=== PATIENT | female | born 1940 | race Caucasian/White ===

== ENCOUNTER 2019-10-23 10:22 | Inpatient (IN) | payer MEDICARE, OTHER ==
[~2019-10-23] VITALS: Ht 165.1 cm; Wt 77.6 kg
[~2019-10-23 10:22] MED LIST: ASPIR 8181 MG PO; ATENOLOL25 MG PO; CENTRUM COMPLE1 EACH PO; ESIDRIX25 MG PO; POTASSIUM CITRA5 MEQ PO; POTASSIUM INJ; SYNTHROID50 MCG PO
--- NOTE | 2019-10-23 11:51 | NUR ---
Efe HARDY IN TO SEE THE PT.
[2019-10-23] MEDS ORDERED: SODIUM CHLORIDE 0.9% 500ML 500 ML IV STA (11:56)
[2019-10-23] MEDS ORDERED: MECLIZINE HCL 12.5 MG TAB PO ONE (12:15)
[2019-10-23 12:20] LABS: BASOPHILS # (AUTO) 0.1 (0.0-0.1); BASOPHILS % 0.4 % (0.0-1.0); EOSINOPHILS % 0.2 % (0.0-6.0); HEMATOCRIT 48.4 % (34.2-44.1); HEMOGLOBIN 16.1 g/dL (12.0-16.0); LYMPHOCYTES # (AUTO) 1.3 (1.0-3.2); LYMPHOCYTES % 10.7 % (18.0-39.1); MEAN CORPUSCULAR HEMOGLOBIN 30.7 pg (28-32); MEAN CORPUSCULAR HGB CONC 33.3 g/dL (31-35); MEAN CORPUSCULAR VOLUME 92.4 fL (81-99); MONOCYTES # (AUTO) 0.9 (0.2-0.8); MONOCYTES % 7.1 % (4.4-11.3); NEUTROPHILS # (AUTO) 9.9 (2.1-6.9); NEUTROPHILS % 81.3 % (38.7-80.0); PLATELET COUNT 234 x10e3/uL (140-360); RED BLOOD COUNT 5.24 x10e6/uL (3.6-5.1); RED CELL DISTRIBUTION WIDTH 13.9 % (11.7-14.4)
[2019-10-23 12:32] LABS: INR 1.04; PARTIAL THROMBOPLASTIN TIME 37.7 seconds (23.8-35.5); PROTHROMBIN TIME 14.1 seconds (11.9-14.5)
--- NOTE | 2019-10-23 13:45 | Diagnostic Imaging Report ---
Examination: CT head without contrast Clinical Indication: Loss of balance.. Technique: Transaxial noncontrast images from the skull base through the vertex were obtained. Sagittal and coronal reformatted images were done. Dose modulation, iterative reconstruction, and/or weight based adjustment of the mA/kV was utilized to reduce the radiation dose to as low as reasonably achievable. Comparison: None. Findings: Scalp: No abnormalities. Bones: No fractures. No blastic or lytic lesions. Brain sulci: Mild generalized volume loss for patient's age. Ventricles: Ex vacuo dilatation. No hydrocephalus. Extra-axial space: No abnormalities. Parenchyma: There are patchy areas of low-attenuation within subcortical and periventricular white matter, nonspecific, but could represent microvascular ischemic disease. No masses, hemorrhage, or acute cortical based vascular insults. There is cortical based encephalomalacia involving the left temporal lobe and deep to prior left pterional craniotomy and temporal craniectomy There are dystrophic calcifications in the midline and left aspect of the nadine and left middle cerebellar peduncle which could represent a vascular malformation. Suprasellar region: No abnormalities. Craniocervical junction: The foramen magnum is patent. No Chiari one malformation. Incidental findings: Atherosclerotic calcification of the cavernous and supraclinoid internal carotid arteries. Impression: 1. No acute intracranial abnormality. 2. Mild chronic microvascular ischemic change and generalized volume loss. 3. 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 Signed by: Dr. Nadia Frey M.D. on 10/23/2019 1:42 PM
--- NOTE | 2019-10-23 13:47 | Diagnostic Imaging Report ---
Chest, portable AP view History: Loss of balance Comparison: None IMPRESSION: The heart is within normal limits of size. The aorta has a tortuous appearance. There is no focal consolidation, sizable pleural effusion, or pneumothorax. No acute osseous abnormalities. Signed by: Dakota Braga MD on 10/23/2019 1:44 PM
[2019-10-23 14:21] LABS: BILIRUBIN,URINE NEGATIVE (NEGATIVE); COLOR,URINE YELLOW (YELLOW); KETONES,URINE 1+ (NEGATIVE); LEUKOCYTE ESTERASE ,URINE NEGATIVE (NEGATIVE); NITRITE,URINE NEGATIVE (NEGATIVE); PROTEIN,URINE DIPSTICK TRACE (NEGATIVE); URINE UROBILINOGEN 0.2 mg/dL (0.2 - 1)
[2019-10-23 14:35] LABS: CLARITY,URINE SL CLOUDY (CLEAR)
[2019-10-23 14:37] LABS: EPITHELIAL CELLS,URINE RARE /LPF; RBC,URINE 0-5 /HPF (0-5)
[2019-10-23] MEDS ORDERED: SODIUM CHLORIDE 0.9% 1000ML 1,000 ML IV ONE (15:15)
--- OUTSIDE RECORDS SUMMARY | 2019-10-23 15:35 | XMS REPORT ---
Author [facility] Address Unknown Phone Unavailable Care Team Providers Care Supervisor [employer] Name Role Phone Padma RHODES Unavailable Unavailable Problems This patient has no known problems. Allergies, Adverse Reactions, Alerts This patient has no known allergies or adverse reactions. Medications This patient has no known medications. Results Test Description Test Time Test Comments Text Results Atomic Results Result Comments CHEST SINGLE (PORTABLE) 2019-10-23 13:44:00 [place] [address] Patient Name: ALBA ROBLEDO MR #: [id number] : 1940 Age/Sex: 79/F Req #: [id number] Adm Physician: Ordered by: HAYLEY WINSLOW DAT[employer] SUPPORT Report #: [id number] Location: ER Room/Bed: Procedure: [id number] DX/CHEST SINGLE (PORTABLE) Exam Date: 10/23/19 Exam Time: 1239 REPORT STATUS: Signed Chest, portable AP view History: Loss of balance Comparison: None IMPRESSION: The heart is within normal limits of size. The aorta has a tortuous appearance. There is no focal consolidation, sizable pleural effusion, or pneumothorax. No acute osseous abnormalities. Signed by: Dakota Ta MD on 10/23/2019 1:44 PM Dictated By: DAKOTA TA MD 1344 Transcribed By: NHI on 10/23/194 COPY TO: HAYLEY WINSLOW NP CT BRAIN WO 2019-10-23 13:39:00 [place] [address] Patient Name: ALBA ROBLEDO MR #: [id number] : 1940 Age/Sex: 79/F Req #: [id number] Adm Physician: Ordered by: HAYLEY WINSLOW NP Report #: [id number] Location: ER Room/Bed: Procedure: [id number] CT/CT BRAIN WO Exam Date: Exam Time: REPORT STATUS: Signed Examination: CT head without contrast Clinical Indication: Loss of balance.. Technique: Transaxial noncontrast images from the skull base through the vertex were obtained. Sagittal and coronal reformatted images were done. Dose modulation, iterative reconstruction, and/or weight based adjustment of the mA/kV was utilized to reduce the radiation dose to as low as reasonably achievable. Comparison: None. Findings: Scalp: No abnormalities. Bones: No fractures. No blastic or lytic lesions. Brain sulci: Mild generalized volume loss for patient's age. Ventricles: Ex vacuo dilatation. No hydrocephalus. Extra-axial space: No abnormalities. Parenchyma: There are patchy areas of low-attenuation within subcortical and periventricular white matter, nonspecific, but could represent microvascular ischemic disease. No masses, hemorrhage, or acute cortical based vascular insults. There is cortical based encephalomalacia involving the left temporal lobe and deep to prior left pterional craniotomy and temporal craniectomy T here are dystrophic calcifications in the midline and left aspect of the nadine and left middle cerebellar peduncle which could represent a vascular malformation. Suprasellar region: No abnormalities. Craniocervical junction: The foramen magnum is patent. No Chiari one malformation. Incidental findings: Atherosclerotic calcification of the cavernous and supraclinoid internal carotid arteries. Impression: 1. No acute intracranial abnormality. 2. Mild chronic microvascular ischemic change and generalized volume loss. 3. 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 Signed by: Dr. Nadia Frey M.D. on 10/23/2019 1:42 PM Dictated By: NADIA HOYT MD 1342 Transcribed By: NHI on 10/23/19 1342 COPY TO: HAYLEY WINSLOW NP
[2019-10-23 17:55] LABS: ALANINE AMINOTRANSFERASE 21 IU/L (0-55); ALBUMIN 3.7 g/dL (3.5-5.0); ALBUMIN/GLOBULIN RATIO 1.1 (0.8-2.0); ALKALINE PHOSPHATASE 74 IU/L (40-150); ANION GAP 15.6 mmol/L (8-16); BLOOD UREA NITROGEN 11 mg/dL (7-26); BUN/CREATININE RATIO 14 (6-25); CALCIUM 8.9 mg/dL (8.4-10.2); CARBON DIOXIDE 23 mmol/L (22-29); CHLORIDE 101 mmol/L (98-107); CREATINE KINASE 194 IU/L (29-168); CREATININE, SERUM 0.76 mg/dL (0.57-1.11); EST GLOMERULAR FILTRATION RATE > 60 ML/MIN (60-); GLUCOSE 92 mg/dL (74-118); POTASSIUM 3.6 mmol/L (3.5-5.1); SODIUM 136 mmol/L (136-145)
[2019-10-23] MEDS ORDERED: HYDRALAZINE HCL 20 MG/ML VIAL IV ONE ×2 (18:06→18:14)
--- NOTE | 2019-10-23 18:39 | Diagnostic Imaging Report ---
Exam: Brain MRI, neck MRA and intracranial MRA without IV contrast History: Ataxia Comparison studies: Head CT 10/23/2019 Technique: Brain: Pre-contrast: Sagittal T2; axial T1-IR, MPGR, DWI, T2 FLAIR. Post-contrast: axial and coronal T1. Cervical MRA: Axial 2-D [id number] with 3-D MIP reformats. Intracranial MRA: Axial 3-D [id number] with coronal, sagittal and 3-D MIP reformats. Intravenous contrast: None Findings: Brain: Scalp and bones: Surgical changes of prior left frontotemporal craniotomy. Plate and screw construct also present along the adjacent left zygomatic arch as seen on the prior CT. Brain sulci: Mildly prominent. Ventricles: Lateral and third ventricles are mildly prominent and there is ex vacuo dilatation of the left temporal horn due to chronic left temporal insult. Fourth ventricle is moderately prominent. Parenchyma: No mass, acute hemorrhage or acute ischemia. Chronic cortical/subcortical insult with encephalomalacia and gliosis along within the anterior and lateral left temporal lobe as well as smaller insult along the left lateral orbitofrontal gyrus beneath beneath the left frontotemporal craniotomy. Likely correlated with surgical history. A few scattered and mildly confluent T2 FLAIR hyperintense foci in the supratentorial white matter are nonspecific but are most compatible with chronic microvascular ischemic changes. Dystrophic calcifications in the nadine are better visualized on the preceding head CT. Vascular lesion/of the cavernous malformation is a consideration. Minimal gliotic changes are present in the left ventral nadine. There is nonspecific moderate volume loss within the cerebellum which is nonspecific. Findings can be seen as sequela chronic EtOH use, chronic use of antiseizure medication (i.e. Dilantin/phenytoin) in the appropriate clinical setting among other etiologies. Suprasellar region: No abnormalities. Craniocervical junction: No abnormalities. The foramen magnum is patent. No Chiari malformations. Vessels: Normal flow-voids in the arteries and sinuses. Incidental findings: Lens or placement for previous cataract surgery. Neck MRA: Exam is limited by artifacts related to patient motion. If present, stenosis is calculated utilizing the NASCET method which calculates the degree of stenosis with reference to the normal lumen of the carotid artery distal to the stenosis. Common carotid arteries: Patent, no flow limiting stenosis. Carotid bulbs: Patent, no (0%) stenosis by NASCET criteria. Internal carotid arteries: Patent, no flow limiting stenosis. Vertebral arteries: Evaluation the origins are limited by motion artifacts otherwise patent, no flow limiting stenosis. Intracranial MRA: Anterior circulation: Internal carotid arteries: Calcified atherosclerosis in the cavernous segments bilaterally. Patent, no flow limiting stenosis on the right. Patent left ICA with moderate to severe stenosis in the left cavernous segment with mild poststenotic dilatation. Anterior cerebral arteries: No proximal branch occlusion or stenosis. Middle cerebral arteries: Patent, no proximal branch occlusion or stenosis. Posterior circulation: Vertebral arteries: Patent, no flow signal abnormalities. Basilar artery: Patent, no flow signal abnormalities. 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 Posterior cerebral arteries: Patent, no proximal branch occlusion or stenosis. Anatomical variants: Anterior cerebral arteries: Likely hypoplastic left A1 segment Acom: Visualized. Pcoms: Not visualized bilaterally.. Vertebral arteries: Codominant. Basilar artery: Possible fenestration at the vertebrobasilar junction. IMPRESSION: Brain: 1. No acute intracranial abnormalities. 2. 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 3. Mild to moderate supratentorial chronic microvascular ischemic changes. 4. Generalized brain volume loss with nonspecific moderate cerebellar atrophy, as described. 5. Nonspecific pontine calcifications, better visualized on the prior 10/23/2019 CT. Neck MRA: 1. Patent carotid arteries without flow limiting stenosis. No (0%) stenosis at the carotid bulbs by NASCET criteria. 2. Cannot adequately evaluate the vertebral artery origins due to artifacts. Both vertebral arteries otherwise patent without flow limiting stenosis. Intracranial MRA: 1. Moderate to severe stenosis in the left cavernous ICA segment. 2. No major branch occlusion or other major branch stenosis. 3. Anatomical variants as described. Signed by: Dr. Dillon Duff M.D. on 10/23/2019 6:35 PM
[2019-10-23 20:49] VITALS: BP 144/77
--- NOTE | 2019-10-23 20:50 | NUR ---
Received patient from ER via stretcher. Patient is alert, oriented and verbal. Transferred to bed. Oriented to room. Patient wants to go to the bathroom but complain of weakness to both lower extremities. Walker provided but patient refused. Bedpan offered, used by patient. [place] alarm on. Call light within reached.
[2019-10-23 22:06] VITALS: BP 144/77
[2019-10-23 22:13] VITALS: BP 144/77
[2019-10-24] VITALS (8 sets, daily range): BP systolic 101–169; BP diastolic 62–78
[2019-10-24 01:02] LABS: CREATINE KINASE 225 IU/L (29-168)
[2019-10-24] MEDS: LEVOTHYROXINE SODIUM 50 MCG TAB PO SCH (05:14)
[2019-10-24 06:57] LABS: BASOPHILS # (AUTO) 0.1 (0.0-0.1); BASOPHILS % 0.6 % (0.0-1.0); EOSINOPHILS # (AUTO) 0.3 (0.0-0.4); EOSINOPHILS % 2.6 % (0.0-6.0); HEMATOCRIT 45.5 % (34.2-44.1); LYMPHOCYTES % 20.3 % (18.0-39.1); MEAN CORPUSCULAR HEMOGLOBIN 30.6 pg (28-32); MEAN CORPUSCULAR VOLUME 92.9 fL (81-99); MONOCYTES # (AUTO) 0.8 (0.2-0.8); MONOCYTES % 8.4 % (4.4-11.3); NEUTROPHILS # (AUTO) 6.5 (2.1-6.9); NEUTROPHILS % 67.8 % (38.7-80.0); PLATELET COUNT 203 x10e3/uL (140-360); RED CELL DISTRIBUTION WIDTH 13.8 % (11.7-14.4)
[2019-10-24 07:11] LABS: CREATINE KINASE MB < 1.00 ng/mL (0-4.3)
[2019-10-24 07:46] LABS: ALANINE AMINOTRANSFERASE 16 IU/L (0-55); ALBUMIN 3.5 g/dL (3.5-5.0); ALBUMIN/GLOBULIN RATIO 1.2 (0.8-2.0); ALKALINE PHOSPHATASE 69 IU/L (40-150); ANION GAP 14.2 mmol/L (8-16); BLOOD UREA NITROGEN 9 mg/dL (7-26); BUN/CREATININE RATIO 13 (6-25); CALCIUM 8.4 mg/dL (8.4-10.2); CARBON DIOXIDE 22 mmol/L (22-29); CHLORIDE 102 mmol/L (98-107); CREATININE, SERUM 0.72 mg/dL (0.57-1.11); EST GLOMERULAR FILTRATION RATE > 60 ML/MIN (60-); GLUCOSE 83 mg/dL (74-118); POTASSIUM 3.2 mmol/L (3.5-5.1); SODIUM 135 mmol/L (136-145)
[2019-10-24 08:06] LABS: CREATINE KINASE 151 IU/L (29-168)
[2019-10-24] MEDS: ATENOLOL 50 MG TAB PO SCH (08:40)
[2019-10-24] MEDS: POTASSIUM CITRATE 10 MEQ TAB PO SCH (08:40)
[2019-10-24] MEDS: MULTIVITAMINS/MINERALS TAB PO SCH (08:41)
[2019-10-24] MEDS: ASPIRIN 81 MG CHEW TAB PO SCH (08:41)
[2019-10-24] MEDS ORDERED: NON-FORMULARY MEDICATION (Multivitamin/Iron/Folic Acid (Centrum Complete Multivit Tab) 1 T PO SCH (09:00)
[2019-10-24] MEDS ORDERED: POTASSIUM CITRATE 1080 MG PO SCH (09:00)
[2019-10-24] MEDS ORDERED: NON-FORMULARY MEDICATION (Atenolol 25 MG) PO SCH (09:00)
[2019-10-24] MEDS: MECLIZINE HCL 12.5 MG TAB PO SCH ×3 (10:00→22:00)
[2019-10-24] MEDS ORDERED: POTASSIUM CHLORIDE 10MEQ EA PO ONE ×2 (10:40→15:30)
[2019-10-24] MEDS ORDERED: VALSARTAN 160 MG TAB PO ONE (10:45)
--- NOTE | 2019-10-24 16:53 | History and Physical ---
CHIEF COMPLAINT: Difficulty walking, dizziness. HISTORY OF PRESENT ILLNESS: The patient is an 79-year-old female with previous craniotomy back in 2007. The patient's history is not reliable, but she did have surgery because of vision problems in the left eye and subsequently after the craniotomy, the patient had some double vision of the left eye and she is wearing a special spectacle for the eye vision. Apparently, she was doing well, but for the past month or so, she was having increasing dizziness, but not quite severe where she was able to manage. On the day of her presentation, the patient was having difficulty get out of bed because she was unable to get up and walk due to severe dizziness and ataxia. She came to the hospital for evaluation. Multiple tests were done including MRI, MRA of the brain, and CT of the brain. The patient has patent carotid arteries with outflow limitation. On the intracranial MRA, the patient had [id number] stenosis in the left cavernous ICA segment. No major brain occlusion, however. The patient basically has no mass or acute hemorrhage or acute ischemic changes of the MRI. The patient is otherwise stable, although she is still having some dizziness when she gets out of bed, especially sitting up and standing up. The patient has no chest pain or shortness of breath. No abdominal pain. PAST MEDICAL HISTORY: Previous craniotomy back in 2007, off and on dizziness, hypertension, hypothyroidism, and osteoarthritis. SOCIAL HISTORY: The patient lives at home. She does not smoke or use alcohol. No regular drug. ALLERGIES: NO KNOWN ALLERGIES. HOME MEDICATIONS: Baby aspirin, atenolol, HCTZ, levothyroxine, multivitamin, and potassium. PHYSICAL EXAMINATION: VITAL SIGNS: Temperature is 99.5, blood pressure is 169/78, pulse rate 73, and respirations 18. GENERAL: The patient is not in acute distress. She is awake. HEENT: Normocephalic grossly. No laceration. NECK: Supple. PULMONARY: Clear. CARDIOVASCULAR: Regular rate and rhythm. ABDOMEN: Soft and unremarkable. EXTREMITIES: No cyanosis or edema. NEUROLOGIC: The patient had dizziness and ataxia, but otherwise no weakness noticed in upper or lower extremities. No other focal deficit. LABORATORY DATA: Sodium is 135, potassium 3.2, chloride 102, bicarb is 22, BUN is 9, creatinine 0.7, and glucose 83. WBC is 9.6, hemoglobin is 15, hematocrit 45, and platelets is 203. IMPRESSION: Ataxia with dizziness could be secondary to benign positional vertigo. The imaging tests, MRI, MRA of the brain, and CT of the brain, there was no acute finding. There is no mass effect. The previous craniotomy, which is stable. PLAN: Trial of nicotine. PT/OT for the patient. I will consult Dr. French, neurologist and I did speak with her. Dr. French will see the patient to see if she can amend the treatment to make the patient a few little better. But otherwise, the imaging did not review any acute intervention needed. MD GENESIS Trevizo/HENRY /[id number]
--- NOTE | 2019-10-24 19:32 | NUR ---
CHECKED PATIENT IN HER ROOM, SHE IS AWAKE ALERT ORIENTED, NO DISTRESS NOTED, DENIED ANY DISCOMFORT. SHE STATED DR ARCOS CAME TO HER TODAY. SHE ALSO STATED SHAT SHE STILL NOT STABLE WALKING TO BATHROOM BY HERSELF. CALLED LIGHT WITHIN REACH AND ADVISED PATIENT TO CALL FOR HELP.
--- NOTE | 2019-10-24 20:20 | NUR ---
Received patient from another nurse. patient is stable, safety and fall precautions mantained at this time and patient encouraged to call for help at all times, bed alarm in place.
--- NOTE | 2019-10-24 21:59 | Consultation ---
DATE OF CONSULTATION: 10/24/2019 Neurology Consult Note HISTORY OF PRESENT ILLNESS: Ms. 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 At approximately 0330 on the day of admission, the patient awoke from sleep needing to use the restroom. As she turned towards her left side to rise from the bed, the patient experienced a sudden onset of severe dizziness, which is further described as a vertiginous sensation. Ms. Bowles does not report blurred vision or other visual disturbance, nausea, vomiting, or headache associated with the vertiginous sensation. To her knowledge, there were no other neurological symptoms accompanying the vertiginous sensation. Over the next several minutes, the patient repeatedly attempted to rise from her bed, so she could use the restroom. However, each time the patient tried to stand from her bed, she experienced severe vertigo and fell back towards the bed. Ms. Bowles reports the vertigo occurred only in association with movement. When she laid still, she did not experience a vertiginous sensation. Ms. Bowles eventually did move from her bed to the restroom and back again. However, the patient reports having to crawl or scoot along the floor in order to move from her bed to the restroom and back again. After using the restroom, the patient returned to sleep for a few hours. When she awoke, the vertiginous sensation persisted. Ms. Bowles subsequently called her sister, told her of her symptoms, and requested her sister to take her to an emergency center for evaluation. When Ms. Bowles's sister and [id number] arrived at her home to take her to the emergency center, the patient had to crawl to the front door in order to open it. It took both the patient's sister and her zotezdt-hn-jzs to help her stand, ambulate to their truck, and sit herself in the truck. Once this was accomplished, Ms. Bowles was brought to the emergency center at [facility] for further evaluation of her symptoms. Upon arrival in the emergency center, the patient was afebrile with a blood pressure of 150/81 mmHg and a pulse of 65 beats per minute. Her neurological examination was significant for generalized weakness and a positive Romberg with noted truncal ataxia. While in the emergency center, the patient underwent a CT of the brain without contrast. This study did not reveal evidence of recent large territorial ischemia or hemorrhage. A prior left temporal craniotomy and temporal craniectomy with encephalomalacia of the left frontotemporal region were appreciated on this study. Ms. Bowles was subsequently admitted to [facility] under observation status for further evaluation and treatment of her symptoms. Ms. Bowles does not report experiencing similar symptoms previously. She does not report pain or pressure behind either ear, drainage from either ear, hearing loss or tinnitus affecting either ear. She does not report recent fevers, chills, rhinorrhea, nasal congestion, scratchy throat, cough, or other symptoms suspicious for an upper respiratory illness. As stated above, the patient was reportedly diagnosed with a brain mass (type unknown) approximately 8-10 years ago. She underwent resection of a "majority" of the mass followed by 30 cycles of radiation. Following these treatments, Ms. Bowles underwent annual surveillance at [facility]. Approximately two years ago, the patient was advised she may follow up for surveillance once every two years. As far she can recall, Ms. Bowles has not been seen by her physicians at [facility] in approximately 2 years. REVIEW OF SYSTEMS: Palpitations, impairment of balance and gait, dizziness which is further described as a vertiginous sensation. Otherwise, a 12-point review of systems is negative. PAST MEDICAL HISTORY: Hypertension, thyroid disease, prior cerebral mass as detailed in the history of present illness. PAST SURGICAL HISTORY: Neurosurgical procedure for brain mass, repair of left wrist fracture, multiple ankle surgeries, tonsillectomy, cholecystectomy, bilateral cataract removal, and left eye surgery for diplopia. PAST HOSPITALIZATIONS: Surgeries/procedures as listed. FAMILY MEDICAL HISTORY: Ms. Bowles's father is . His medical history was significant for coronary artery disease with multiple myocardial infarctions and two strokes. The patient's mother is from colon cancer. Ms. Bowles's mother had a history of diabetes mellitus as well. The patient has two siblings, one brother and one sister, both of whom are alive. Ms. Bowles's brother's medical history is unknown. Her sister, who is at the bedside, reports she is healthy. The patient has no children. SOCIAL HISTORY: Ms. Bowles is single. 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 She does not report current or prior tobacco, alcohol, or recreational drug use. HOME MEDICATIONS: Aspirin 81 mg by mouth daily, atenolol 25 mg by mouth daily, hydrochlorothiazide 25 mg by mouth daily, levothyroxine 50 mcg by mouth every morning, multivitamin one tablet by mouth daily, and potassium citrate one tablet by mouth daily. HOSPITAL MEDICATIONS: Aspirin, atenolol, levothyroxine, meclizine, multivitamin, potassium citrate, and valsartan. ALLERGIES: NO KNOWN DRUG ALLERGIES. NO KNOWN FOOD ALLERGIES. NO KNOWN ALLERGIES TO LATEX. NO KNOWN ALLERGIES TO IODINE OR OTHER CONTRAST MATERIALS. PHYSICAL EXAMINATION: VITAL SIGNS: Height 65 inches, weight 172 pounds, BMI 28.6 kg/m2, blood pressure 164/67 mmHg, pulse 61 beats per minute, respiratory rate 18 breaths per minute, and oxygen saturation 95% on room air. GENERAL: The patient is awake and alert, does not appear distressed. Overweight. HEENT: Normocephalic, atraumatic. Pupils are surgical. Moist mucous membranes. NECK: Supple. No appreciable thyromegaly. No appreciable carotid bruits. CARDIOVASCULAR: S1, S2, regular rate and rhythm. No murmurs, rubs, or gallops. RESPIRATORY: Clear to auscultation bilaterally. No wheezes, rhonchi, or rales. EXTREMITIES: The skin is warm and dry. No clubbing, cyanosis, or edema. The posterior tibial and dorsalis pedis pulses are 2+ and symmetric. SKIN: No rashes or lesions. NEUROLOGIC: Memory/Attention: The patient is awake and alert, oriented to person, place, time, and situation. Cranial Nerves: Cranial nerve I - not tested. Cranial nerve II, III, IV, and - pupils are surgical. Extraocular movements intact. No nystagmus. Cranial nerve V - sensation to light touch and pinprick is intact in the bilateral V1 through V3 distributions. Strength in the temporalis and masseter muscles is within normal limits. Cranial nerve VII - the face is symmetric as are all facial movements. Strength is within normal limits. Cranial nerve VIII - hearing is diminished to finger rub bilaterally. Cranial nerve IX, X - the soft palate elevates equally and symmetrically. Cranial nerve XI - normal strength of the bilateral sternocleidomastoid and trapezius muscles. Cranial nerve XII - the tongue protrudes midline and moves symmetrically from vqxs-je-qrel. Strength: Bulk is normal. Strength is 5/5 in the bilateral deltoids, biceps, triceps, wrist flexors and extensors, finger flexors and extensors, intrinsic hand muscles, hip flexors, knee flexors and extensors, ankle dorsiflexion and plantar flexion, and intrinsic foot muscles. Tone is normal. DTRs: Deep tendon reflexes are 2++ and symmetric at the triceps, biceps, brachioradialis, patellas, and Achilles. Plantar responses are flexor bilaterally. Sensation: Sensation is intact to light touch and pinprick in both arms and both legs. Cerebellar: Mqiuzd-igub-hkvyie and heel-alexis movements are intact without dysmetria or other impairment. Gait: Deferred. Speech: Spontaneous speech is normal without appreciable dysarthria or aphasia. Repetition is intact. Involuntary movements: None. Pronator Drift: None. LABORATORY DATA: The most recent comprehensive metabolic panel is significant for sodium of 135, potassium of 3.2, and total bilirubin of 1.5. Other than mildly elevated creatine kinase, cardiac enzymes are negative x2. B-natriuretic peptide 121.7. TSH 0.083. The CBC with differential and platelets is unremarkable. A coagulation profile is within normal limits. Urinalysis collected on October 23, 2019, reveals slightly cloudy urine with trace protein and 1+ ketones. A urine culture collected on October 23, 2019, reveals no growth at 18 to 24 hours. DIAGNOSTIC STUDIES: Chest x-ray on 10/23/2019: The heart is within normal limits of size. The aorta has a tortuous appearance. There is no focal consolidation, sizable pleural effusion, or pneumothorax. No acute osseous abnormalities. CT of the brain without contrast on 10/23/2019: On my review, there is no evidence of recent large territorial ischemia, hemorrhage, mass, or mass effect. There is an encephalomalacia in the left frontotemporal region with findings compatible with prior left temporal craniectomy. Cerebral volumes are appropriate for age. There is ex vacuo dilatation of the ventricle. There are findings compatible with etpu-uy-nyzxzebt chronic small-vessel ischemic disease. MRI of the brain without contrast on 10/23/2019: Unchanged from the CT of the brain without contrast of the same date. 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 Otherwise, the intracranial and extracranial vasculature are without hemodynamically significant stenosis. ASSESSMENT AND PLAN: Ms. Bowles is an 79-year-old right-hand dominant woman with past medical history as detailed, admitted to [facility] on October 23, 2019, under observation status with vertigo and poor balance with impairment of gait resulting in multiple falls. The patient has undergone a thorough neurological examination with findings detailed above. Her laboratory data and other diagnostic studies have been reviewed and are documented above. 1. In my opinion, the etiology of the patient's vertigo with poor balance, impairment of gait, and multiple recent falls is due to benign paroxysmal positional vertigo, probably affecting the left ear. According to the patient, her symptoms are gradually improving. Continue meclizine 12.5 mg by mouth every 8 hours. Follow up the recommendations of the physical therapy consultation. If Ms. Bowles's symptoms have not resolved within 2-3 days, consider a referral to Physical Therapy for vestibular exercises. 2. 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 It is not symptomatic, so no intervention, i.e., stenting is necessary. However, the patient's vascular risk factors should be aggressively treated to prevent progression of the stenosis. To this end, a lipid panel and hemoglobin A1c will be added to the blood work ordered for the morning of October 25, 2019. Recommendations are as follows: a. Continue treatment with aspirin 81 mg by mouth daily. b. The patient's goal blood pressure is less than 130/70 mmHg. c. The patient's goal total cholesterol is less than 200 with an LDL of less than 100. Follow up the results of the lipid panel and prescribe statin medication as appropriate. d. The patient's goal hemoglobin A1c is less than 7.0. Follow up the results of the hemoglobin A1c and treat as appropriate. 3. As detailed in the history of present illness, Ms. 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 Defer continued monitoring and treatment to [facility]. 4. Defer treatment of the remaining medical comorbidities to the primary and other services following the patient. 5. Anticipated discharge home within 1-2 days. Thank you for this consultation. I will continue to monitor the patient while she remains in the hospital. TIME SPENT: 70 minutes. Lata French MD CP/HENRY /[id number] MTDD
[2019-10-25] VITALS (8 sets, daily range): BP systolic 153–183; BP diastolic 66–78
[2019-10-25] MEDS: MECLIZINE HCL 12.5 MG TAB PO SCH ×3 (05:56→21:00)
[2019-10-25] MEDS: LEVOTHYROXINE SODIUM 50 MCG TAB PO SCH (05:57)
[2019-10-25] MEDS ORDERED: VALSARTAN 160 MG TAB PO SCH (06:00)
--- NOTE | 2019-10-25 06:19 | NUR ---
Dr. Nj office paged for GI consult Addendum: 10/25/19 at 0621 by Asim Landeros RN WRONG GINA
[2019-10-25 07:02] LABS: ANION GAP 13.5 mmol/L (8-16); BLOOD UREA NITROGEN 9 mg/dL (7-26); BUN/CREATININE RATIO 12 (6-25); CALCIUM 8.3 mg/dL (8.4-10.2); CARBON DIOXIDE 24 mmol/L (22-29); CHLORIDE 102 mmol/L (98-107); CREATININE, SERUM 0.76 mg/dL (0.57-1.11); EST GLOMERULAR FILTRATION RATE > 60 ML/MIN (60-); GLUCOSE 87 mg/dL (74-118); POTASSIUM 3.5 mmol/L (3.5-5.1); SODIUM 136 mmol/L (136-145)
[2019-10-25] MEDS: ASPIRIN 81 MG CHEW TAB PO SCH (08:54)
[2019-10-25] MEDS: MULTIVITAMINS/MINERALS TAB PO SCH (08:54)
[2019-10-25] MEDS: POTASSIUM CITRATE 10 MEQ TAB PO SCH (08:55)
[2019-10-25] MEDS: ATENOLOL 50 MG TAB PO SCH (08:55)
[2019-10-25] MEDS ORDERED: POTASSIUM CHLORIDE 10MEQ EA PO SCH (09:00)
[2019-10-25] MEDS ORDERED: HYDROCHLOROTHIAZIDE 25 MG TAB PO SCH (09:00)
[2019-10-25] MEDS ORDERED: VALSARTAN 160 MG TAB PO ONE (10:30)
[2019-10-25] MEDS ORDERED: POTASSIUM CHLORIDE 10MEQ EA PO ONE (12:45)
--- NOTE | 2019-10-25 14:45 | NUR ---
Discussed d/c concerns with , Physical therapist. Received order for SNF. Pt/family in agreement. Pt has [employer] medicare. provided list of facilities that are in network with her insurance however pt said she had been to [facility] rehab previously and she liked the facility. Her insurance did not pay for her stay there at that time so she privately paid for her stay there. Many of the facilities that are in network are not in a good area as per pt.Pt is aware that [facility] is not in network with her insurance and she will have to private pay and she is willing to do it, gave permission to fax her clinicals to [facility]. DAJUAN faxed clinicals. Will follow up on Sunday.
--- NOTE | 2019-10-25 19:20 | NUR ---
Patient visited in room during nursing rounds. Patient alert and oriented x3. No distress or discomfort noted. Ambulatory in room with walker and standby assist prn. Call murphy within reach. Will monitor closely.
--- NOTE | 2019-10-25 20:28 | NUR ---
Called Dr. Steele and informed him patient's BP elevated (179/78). MD aware and ordered Norvasc 10mg daily and to give 1st dose tonight.
[2019-10-25] MEDS: AMLODIPINE BESYLATE 10 MG TAB PO SCH (20:54)
[2019-10-26] VITALS (8 sets, daily range): BP systolic 123–168; BP diastolic 53–70
[2019-10-26] MEDS: MECLIZINE HCL 12.5 MG TAB PO SCH ×3 (05:50→21:39)
[2019-10-26] MEDS: LEVOTHYROXINE SODIUM 50 MCG TAB PO SCH (05:50)
[2019-10-26] MEDS: VALSARTAN 160 MG TAB PO SCH (05:50)
[2019-10-26 06:39] LABS: ANION GAP 13.8 mmol/L (8-16); BLOOD UREA NITROGEN 10 mg/dL (7-26); BUN/CREATININE RATIO 14 (6-25); CALCIUM 8.5 mg/dL (8.4-10.2); CARBON DIOXIDE 23 mmol/L (22-29); CHLORIDE 103 mmol/L (98-107); CREATININE, SERUM 0.71 mg/dL (0.57-1.11); EST GLOMERULAR FILTRATION RATE > 60 ML/MIN (60-); GLUCOSE 87 mg/dL (74-118); POTASSIUM 3.8 mmol/L (3.5-5.1); SODIUM 136 mmol/L (136-145)
[2019-10-26] MEDS: ASPIRIN 81 MG CHEW TAB PO SCH (08:15)
[2019-10-26] MEDS: AMLODIPINE BESYLATE 10 MG TAB PO SCH (08:15)
[2019-10-26] MEDS: MULTIVITAMINS/MINERALS TAB PO SCH (08:15)
[2019-10-26] MEDS: POTASSIUM CITRATE 10 MEQ TAB PO SCH (08:15)
[2019-10-26] MEDS: ATENOLOL 50 MG TAB PO SCH (08:16)
[2019-10-27] VITALS (8 sets, daily range): BP systolic 120–147; BP diastolic 58–63
[2019-10-27] MEDS: MECLIZINE HCL 12.5 MG TAB PO SCH ×3 (05:57→21:08)
[2019-10-27] MEDS: LEVOTHYROXINE SODIUM 50 MCG TAB PO SCH (05:57)
[2019-10-27] MEDS: VALSARTAN 160 MG TAB PO SCH (05:57)
--- NOTE | 2019-10-27 07:40 | NUR ---
PATIENT IS ALERT AND IN STABLE CONDITION WITH NO S/S OF RESPIRATORY DISTRESS. NO PAIN VOICED. DIAPER APPLIED. CALL LIGHT IS WITHIN REACH- PATIENT INSTRUCTED TO CALL FOR ASSISTANCE NEEDED.
--- NOTE | 2019-10-27 08:10 | NUR ---
FAXED [facility] COMPLETED RTF AND PRINTED IMM FOR PT OR FAMILY TO SIGN. CONTACTED FACILITY AND CONFIRMED RECEIPT OF CLINICALS. WILL COMPLETE PACKET AND FINISH TRANSFER.
[2019-10-27] MEDS: MULTIVITAMINS/MINERALS TAB PO SCH (08:26)
[2019-10-27] MEDS: AMLODIPINE BESYLATE 10 MG TAB PO SCH (08:26)
[2019-10-27] MEDS: ASPIRIN 81 MG CHEW TAB PO SCH (08:26)
[2019-10-27] MEDS: ATENOLOL 50 MG TAB PO SCH (08:27)
[2019-10-27] MEDS: POTASSIUM CITRATE 10 MEQ TAB PO SCH (08:27)
--- NOTE | 2019-10-27 09:14 | NUR ---
IMM SIGNED AND FILED IN CHART WITH COPY LEFT AT BEDSIDE, PT AND FAMILY DECIDED TO CHANGE FACILITIES TO ONE THAT IS IN NETWORK THEY WANT [facility], FAXED CLINICALS TO [phone] AND LET [facility] KNOW THAT PT IS CHANGING FACILITIES.
--- NOTE | 2019-10-27 10:48 | NUR ---
GOT A CALL FROM [facility] LETTING ME KNOW THE PT HAS OUT OF NETWORK BENEFITS, THEY WILL BE COVERED AT 100% FOR 20 DAYS AND A $50.00 COPAY DAILY AFTER. WENT AND SPOKE WITH PT AND FAMILY SHE HAS ELECTED TO GO TO [facility], SENT UPDATED MAR, AND UPDATED RTF ON PACKET FOR COMPLETION OF TRANSFER.
--- NOTE | 2019-10-27 19:03 | NUR ---
PATIENT IS IN STABLE CONDITION WITH NO S/S OF RESPIRATORY DISTRESS- NO PAIN VOICED. DIAPER APPLIED. CALL LIGHT IS WITHIN REACH, PATIENT INSTRUCTED TO CALL FOR ASSISTANCE NEEDED. REPORT GIVEN TO ONCOMING NURSE.
--- NOTE | 2019-10-27 19:15 | NUR ---
patient received awake, alert, lying quietly in bed. vss. no c/o pain noted. pm assessment complete. patient instructed to call for assistance when needed.
[2019-10-28] VITALS (9 sets, daily range): BP systolic 120–150; BP diastolic 57–73
[2019-10-28] MEDS: LEVOTHYROXINE SODIUM 50 MCG TAB PO SCH (05:25)
[2019-10-28] MEDS: MECLIZINE HCL 12.5 MG TAB PO SCH ×3 (05:25→21:18)
[2019-10-28] MEDS: VALSARTAN 160 MG TAB PO SCH (05:25)
--- NOTE | 2019-10-28 07:00 | NUR ---
received am report and rounds done. pt is asleep, no s/s of distress. call light within reach and bed safety implemented.
--- NOTE | 2019-10-28 07:38 | NUR ---
SPOKE WITH FACILITY, STATE STILL NEED PT NOTES, PRINTED AND UPDATED AND FAXED ALL TO [phone]
[2019-10-28] MEDS: ASPIRIN 81 MG CHEW TAB PO SCH (09:19)
[2019-10-28] MEDS: MULTIVITAMINS/MINERALS TAB PO SCH (09:19)
[2019-10-28] MEDS: AMLODIPINE BESYLATE 10 MG TAB PO SCH (09:20)
[2019-10-28] MEDS: ATENOLOL 50 MG TAB PO SCH (09:21)
[2019-10-28] MEDS: POTASSIUM CITRATE 10 MEQ TAB PO SCH (09:21)
[2019-10-29 04:00] VITALS: BP 133/58
[2019-10-29] MEDS: VALSARTAN 160 MG TAB PO SCH (06:15)
[2019-10-29] MEDS: MECLIZINE HCL 12.5 MG TAB PO SCH (06:15)
[2019-10-29] MEDS: LEVOTHYROXINE SODIUM 50 MCG TAB PO SCH (06:16)
--- NOTE | 2019-10-29 07:01 | NUR ---
Patient sleeping comfortably, eyes close respirations even and unlabored. Bed low, wheels locked and call light within reach. IV patent.
[2019-10-29 07:46] VITALS: BP 146/68
[2019-10-29] MEDS: ASPIRIN 81 MG CHEW TAB PO SCH (09:23)
[2019-10-29] MEDS: MULTIVITAMINS/MINERALS TAB PO SCH (09:23)
[2019-10-29] MEDS: AMLODIPINE BESYLATE 10 MG TAB PO SCH (09:23)
[2019-10-29] MEDS: ATENOLOL 50 MG TAB PO SCH (09:24)
[2019-10-29] MEDS: POTASSIUM CITRATE 10 MEQ TAB PO SCH (09:24)
[2019-10-29 09:52] VITALS: BP 146/68
--- NOTE | 2019-10-29 10:34 | NUR ---
[facility] F[facility] DISCHARGE INFORMATION PATIENT HAS BEEN ACCEPTED TO: NAME: [facility] ADDRESS:[id number] ACCEPTING MD:DUSTIN ROOM: [address] NURSE CALL REPORT TO: [phone] IMM SIGNED AND OBTAINED (if applicable): YES THE FOLLOWING DOCUMENTS MUST ACCOMPANY PATIENT FOR TRANSFER: COPIED CHART: CLINICALS AND [facility], PACKET AT STATION
== END 2019-10-29 11:04 | DRG 149 ==
LOC: ER 10:22 → ERHOLD 15:32 → MED/SURG3 20:59 → OBSVTOIN 10-25 10:11
PROVIDERS: ADMIT Internal Medicine; ATTEND Internal Medicine
DX: H81.12 Benign paroxysmal vertigo, left ear (principal); R27.0 Ataxia, unspecified; I65.22 Occlusion and stenosis of left carotid artery; Z92.3 Personal history of irradiation; I10 Essential (primary) hypertension; E03.9 Hypothyroidism, unspecified; M19.90 Unspecified osteoarthritis, unspecified site; I16.0 Hypertensive urgency; Z91.81 History of falling; Z86.011 Personal history of benign neoplasm of the brain; I48.91 Unspecified atrial fibrillation; Z79.01 Long term (current) use of anticoagulants
CPT/HCPCS: 36415; 70450; 70544; 70547; 70551; 71045; 80048; 80053; 80061; 81001; 82550; 82553; 82948; 83036; 83735; 83880; 84443; 84484; 85025; 85610; 85651; 85730; 87086; 93005; 97139; 99284; G0378; J0360; J7030; J7040